=== PATIENT | female | born 1995 | race Caucasian/White ===

== ENCOUNTER 2020-09-21 15:23 | Inpatient (IN) ==
[2020-09-21] MEDS ORDERED: OXYTOCIN 30 UNITS/500 ML BAG IV PRN ×2 (18:05→18:06)
--- NOTE | 2020-09-21 18:16 | History & Physical Report ---
Date of Service September 21, 2020 Assessment & Plan (1) Irregular uterine contractions: (2) Labor, prolonged latent phase: 35-year-old G1, P0 at 39 weeks and 3 days of gestation with irregular uterine contractions, prolonged latent phase. Vital signs stable afebrile. heart rate reassuring GBS negative Discussed expectant management versus augmentation with Pitocin and AROM and she decided to stay and have augmentation and delivery of today. All questions were answered. History of Present Illness Primary Care Provider: Jose De Jesus Whalen MD Patient is a 25-year-old G1, P0 at 39 weeks and 3 days of gestation who has been feeling irregular contractions since this morning. She was in the office last Monday on and her cervix was 4-5 cm 90% effaced and -2 station. She lives 1 hour away and was worried about going into labor at home and delivering on the way. She was at work today which is 15 minutes from hospital and wanted to come in to be checked. Contractions are not very painful but they have been coming all day. No vaginal bleeding no leakage of fluid. Good movements. Her is uncomplicated except class II obesity. GBS negative. Her cervix was about the same at 430 this afternoon and her contractions were irregular. She walked around for about an hour and a half and came back and she thinks contractions are stronger. Her repeat exam is about the same but her cervix is effaced and head is nice and low with a tight bag. Discussed with the patient and her partner about prolonged latent phase. Discussed options of either expectant management or augmentation with Pitocin and AROM and delivery of infant. Patient desires to stay and start augmentation with Pitocin and delivery. All questions were answered. Home Medications Medication Instructions Recorded Confirmed Type aspirin 81 mg PO DAILY 09/21/20 09/21/20 History prenat.vits,guillermina,rpt-scok-bugig 1 tab PO HS 09/21/20 09/21/20 History [ Vitamin] Patient History Medical History No known health problems Surgical History No history of previous surgery Social History Smoking Status: Never smoker Hx Alcohol Use: No Hx Substance Use: No Preferred Language: Samoan Communication Ability: Effective Salesperson Meats Required: No Beliefs That Will Affect Care: None marital status: Current Living Situation: Spouse Other Information That Helps Us Care for You: No Feels Safe at Home: Yes Safety Concerns: 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 Review of Systems All systems reviewed & are unremarkable except as noted in HPI & below Physical Exam Constitutional: WD/WN, vitals as above well developed NAD Genitourinary: normal external appearance Manual OB Exam: + cervical dilation 5 cm, + cervical effacement 80% and + station -2 OB Exam Monitor Tracing: + external uterine monitor used and + category I Results & Data ([facility]) Vital Signs (Past 12 Hours) Vital Signs Temp Pulse Resp BP 09/21/20 16:00 20 09/21/20 15:57 18 09/21/20 15:33 37.1 C 77 20 130/77
[2020-09-21 18:28] LABS: Hematocrit (blood only) 35.2 % (37-47); Hemoglobin 12.3 g/dL (12.0-16.0); Mean Corpuscular Hemoglobin 30.3 pg (25-34); Mean Corpuscular Hgb Conc 34.9 g/dL (32-36); Mean Corpuscular Volume 86.7 fL (80-100); Mean Platelet Volume 10.5 fL (7.4-10.4); Platelet Count 324 K/uL (130-400); RDW Coefficient of Variation 13.6 % (11.5-14.5); RDW Standard Deviation 42.7 fL (36.4-46.3); Red Blood Count 4.06 M/uL (4.2-5.4); White Blood Count 15.72 K/uL (4.8-10.8)
[2020-09-21] MEDS: LACTATED RINGER'S 1,000 ML IV PRN ×2 (18:37→22:57)
--- NOTE | 2020-09-21 21:18 | Obstetrical Progress Note ---
Date of Service September 21, 2020 Assessment & Plan Admission and Anticipated Discharge Date Admission Date: September 21, 2020 Subjective Patient is reevaluated Oxytocin was started, she feel more contractions, but not very painful yet VE; 6/ 80%/ -1, bulging bag, AROM'ed, light meconium FHR categ I [place]: ctxs q 2-6 min Continue to monitor closely Results & Data ([facility]) Vital Signs (Past 12 Hours) Vital Signs Temp Pulse Resp BP 09/21/20 21:14 75 132/77 09/21/20 20:14 77 137/89 09/21/20 18:59 36.9 C 75 16 129/80 09/21/20 18:30 20 09/21/20 18:00 20 09/21/20 16:00 20 09/21/20 15:57 18 09/21/20 15:33 37.1 C 77 20 130/77
[2020-09-21] MEDS ORDERED: ePHEDrine sulfate 50 MG/ML AMP ONE (22:30)
[2020-09-21] MEDS ORDERED: BUPIVACAINE 0.25% 30 ML VIAL ONE (22:30)
[2020-09-21] MEDS ORDERED: fentaNYL citrate 100 MCG/2 ML VIAL ONE (22:30)
[2020-09-21] MEDS ORDERED: SODIUM CHLORIDE 0.9% INJ 10 ML VIAL ONE (22:30)
[2020-09-21] MEDS ORDERED: fentaNYL 2MCG/ML ROPIVACAINE 1.25MG/ML 100 ML BAG EPI ONE (22:31)
--- NOTE | 2020-09-21 22:56 | Obstetrical Progress Note ---
Date of Service September 21, 2020 Assessment & Plan Admission and Anticipated Discharge Date Admission Date: September 21, 2020 Subjective Patient has been painful since AROM, Desires epidural Has pressure VE; 9/ 90%/0 FHR categ I Continue to monitor Epidural for pain Results & Data ([facility] [place]) Vital Signs (Past 12 Hours) Vital Signs Temp Pulse Resp BP Pulse Ox 09/21/20 22:34 95 H 92 09/21/20 22:14 98 H 173/82 H 09/21/20 21:14 36.8 C 75 16 132/77 09/21/20 20:14 77 137/89 09/21/20 18:59 36.9 C 75 16 129/80 09/21/20 18:30 20 09/21/20 18:00 20 09/21/20 16:00 20 09/21/20 15:57 18 09/21/20 15:33 37.1 C 77 20 130/77
--- NOTE | 2020-09-21 23:01 | Anesthesiology Consultation ---
Date of Service September 21, 2020 Assessment & Plan (1) Encounter for pre-operative examination: Chart Review Chart Review: Patient NOT seen in Pre Admission Testing and Acceptable Risk for Labor Epidural Consults Requested none ASA ASA2 Proposed Anesthesia Anesthesia Type: Labor Epidural Risk / Benefits Reviewed With: PT / POA / Parent / Guardian, Accepts Plan and Informed Consent Obtained History Height/Weight Height: 5 ft 7 in Weight: 108.862 kg Allergies Allergy/AdvReac Type Severity Reaction Status Date / Time No Known Allergies Allergy Unverified 09/21/20 18:17 Medications Home Medications Medication Instructions Recorded Confirmed Last Taken aspirin 81 mg PO DAILY 09/21/20 09/21/20 09/20/20 21:30 prenat.vits,guillermina,eky-gxyl-humdz 1 tab PO HS 09/21/20 09/21/20 09/20/20 21:30 [ Vitamin] Active Medications Generic Name Dose Route Start Last Admin Trade Name Freq PRN Reason Stop Dose Admin Lactated Ringer's 1,000 mls @ 150 mls/hr 09/21/20 18:05 09/21/20 22:57 Lr IV 09/23/20 18:04 150 mls/hr .[id number] PRN Administration L&D Protocol Protocol Oxytocin 30 units in 500 mls @ 6 mls/hr 09/21/20 18:06 09/21/20 21:00 Pitocin IV 09/23/20 18:05 0.36 units/hr .Q24H PRN 6 mls/hr Labor Induction/Augmentation Titration Protocol 0.36 UNITS/HR NPO Date Last Intake of Fluids: 09/21/20 Time Last Intake of Fluids: 23:37 Date Last Intake of Solids: 09/21/20 Time Last Intake of Solids: 08:00 Past Medical History Medical History No known health problems Exercise / Class Metabolic Activity III < 4 Walking/Shop/Light housework Past Surgical History Surgical History No history of previous surgery Past Anesthesia History No Hx of Anesthesia Complications History of PONV No Hx of PONV Social History Smoking Status: Never smoker Hx Alcohol Use: No Hx Substance Use: No substance use type: does not use Review of Systems Patient denies history of abnormal bleeding or bleeding disorder. Patient denies active use of anticoagulants other than low dose aspirin. Patient denies numbness, tingling or weakness in lower extremities. Negative for chest pain or shortness of breath. Physical Exam Vital Signs Last Vital Signs Temp 36.8 C 09/21/20 21:14 Pulse 81 09/21/20 23:34 Resp 16 09/21/20 21:14 BP 126/64 09/21/20 23:33 Pulse Ox 94 09/21/20 23:34 Constitutional not obese (gravid uterus) ENMT Thyromental Distance: > or= 3.5 Finger Breadths Mallampati Class: II Neck normal visual inspection; neck extension not limited Respiratory normal respiratory effort, lungs clear to auscultation Cardiovascular Rate/Rhythm: regular rate and regular rhythm Neurologic moves all extremities Motor/Sensory: no sensory deficit Psychiatric Orientation: alert and oriented x 3 Testing Laboratory Results 09/21/20 18:20
--- NOTE | 2020-09-21 23:48 | Anesthesia Procedure Note ---
Date of Service September 21, 2020 Anesthesia Post Epidural Note Vital Signs Vital Signs: Temp Pulse Resp BP Pulse Ox 36.8 C 74 16 147/80 H 98 09/21/20 21:14 09/21/20 23:41 09/21/20 21:14 09/21/20 23:36 09/21/20 23:41 Notes Mental Status: alert / awake / arousable and participated in evaluation Nausea / Vomiting: adequately controlled Pain: adequately controlled Airway Patency, RR, SpO2: stable & adequate BP & HR: stable & adequate Hydration State: stable & adequate Neuraxial Anesthesia: was administered and see Notes below Anesthetic Complications: no major complications apparent Epidural: Removed without complications and With tip intact Notes: Original epidural pulled and immediately replaced. See anesthetic record.
[2020-09-21] MEDS ORDERED: ePHEDrine sulfate 50 MG/ML AMP IV PRN (23:54)
[2020-09-21] MEDS ORDERED: NALOXONE HCL 0.4 MG/1 ML VIAL/CARP IV PRN (23:54)
[2020-09-21] MEDS ORDERED: fentaNYL 2MCG/ML ROPIVACAINE 1.25MG/ML 100 ML BAG EPI PRN (23:54)
[2020-09-21] MEDS ORDERED: NALOXONE HCL 1 MG in SODIUM CHLORIDE 0.9% 1000ML 1,000 ML IV PRN (23:54)
[2020-09-21] MEDS ORDERED: ONDANSETRON INJ 2 MG/ML 2 ML VIAL IV PRN (23:54)
[2020-09-21] MEDS ORDERED: diphenhydrAMINE 50 MG/ML VIAL IV PRN (23:54)
[2020-09-22] MEDS ORDERED: bisacodyL 10 MG SUPP PR PRN (03:09)
[2020-09-22] MEDS ORDERED: OXYTOCIN 30 UNITS/500 ML BAG IV PRN (03:09)
[2020-09-22] MEDS ORDERED: oxyCODONE/ACETAMINOPHEN 5mg/325mg TAB PO PRN (03:09)
[2020-09-22] MEDS ORDERED: SUPERCREAM 0.870% 15 GM JAR EXT PRN (03:09)
[2020-09-22] MEDS ORDERED: MEASLES, MUMPS & RUBELLA VIRUS VIAL SQ ONE (03:09)
[2020-09-22] MEDS ORDERED: HYDROCORTISONE ACETATE 25 MG SUPP PR PRN (03:09)
[2020-09-22] MEDS ORDERED: BENZOCAINE 20% AER SPR 82.5 GM CAN EXT PRN (03:09)
[2020-09-22] MEDS ORDERED: ACETAMINOPHEN 325 MG TAB PO PRN (03:09)
[2020-09-22] MEDS ORDERED: DIPHTHERIA/TETANUS/PERTUSSIS 0.5 ML SYR/VIAL IM ONE (03:09)
--- NOTE | 2020-09-22 06:38 | Delivery Summary ---
DATE OF OPERATION: 09/22/2020 TIME OF DELIVERY: 2:17 a.m. DETAILS OF DELIVERY: The patient was found to be fully dilated and desired to push. She pushed for about an hour and delivered the head without difficulty. Shoulders were delivered with minimal traction. Baby was handed off to the mother where mouth and nose were suctioned. Cord was clamped x2 and cut and cord blood was obtained. Vagina and perineum were checked for lacerations. There was a second-degree perineal laceration at the posterior fourchette. Rectal exam was done and excellent sphincter tone was noted. Gloves were changed and this was repaired with 2-0 Vicryl in a running locked fashion bringing the vaginal mucosa together, perineal body muscles together and skin in a subcuticular fashion. Then placenta was found to be in the vagina, delivered spontaneous as intact and complete. Uterus was explored and found to be empty. Lower segment was cleared of all clots and debris. The fundus was firm. IV oxytocin was started and then laceration was checked to be again oozing in the middle where it was repaired. Multiple [id number]-[id number] stitches were placed and it was still oozing. Then vaginal retractor was used to retract the bladder and then more sutures were placed and it was hemostatic. The edges were oozing. Then Estrada powder was covered over the repair and it was packed with a vaginal packing and Schuster catheter was inserted to drain the bladder. The baby was a viable female infant, Apgars 8/9, weight is 3536gr. No complications happened and I was present during whole procedure. Vaginal packing and schuster were removed 12 hours after. I attest to the content of the Intraoperative Record and any orders documented therein. Any exceptions are noted below. MTDD
--- NOTE | 2020-09-22 07:14 | Anesthesia Procedure Note ---
Date of Service September 22, 2020 Anesthesia Post Epidural Note Vital Signs Vital Signs: Temp Pulse Resp BP Pulse Ox 98.8 F 84 16 114/76 97 09/22/20 06:20 09/22/20 06:20 09/22/20 06:20 09/22/20 06:20 09/22/20 06:20 Pain Intensity Episiotomy/Laceration: Pain Intensity: 3 Notes Mental Status: alert / awake / arousable and participated in evaluation Nausea / Vomiting: adequately controlled Pain: adequately controlled Airway Patency, RR, SpO2: stable & adequate BP & HR: stable & adequate Hydration State: stable & adequate Neuraxial Anesthesia: was administered and sensory block is resolving Anesthetic Complications: no major complications apparent and Pt Satisfied with anesthetic care Epidural: Removed without complications and With tip intact
[2020-09-22] MEDS: PRENATAL VITAMIN 1 TAB PO SCH (07:56)
[2020-09-22] MEDS: IBUPROFEN 600 MG TAB PO PRN ×3 (07:56→17:03)
[2020-09-22] MEDS: FERROUS SULFATE 325 MG TAB PO SCH (07:56)
[2020-09-22] MEDS: DOCUSATE SODIUM 100 MG CAP PO SCH ×2 (07:56→20:12)
[2020-09-23] MEDS: IBUPROFEN 600 MG TAB PO PRN ×2 (04:13→08:32)
[2020-09-23 06:40] LABS: Hemoglobin 9.5 g/dL (12.0-16.0); Mean Corpuscular Hemoglobin 29.7 pg (25-34); Mean Corpuscular Hgb Conc 33.9 g/dL (32-36); Mean Corpuscular Volume 87.5 fL (80-100); Mean Platelet Volume 10.5 fL (7.4-10.4); Platelet Count 242 K/uL (130-400); RDW Coefficient of Variation 13.8 % (11.5-14.5); RDW Standard Deviation 43.7 fL (36.4-46.3); White Blood Count 14.75 K/uL (4.8-10.8)
[2020-09-23] MEDS: PRENATAL VITAMIN 1 TAB PO SCH (08:31)
[2020-09-23] MEDS: FERROUS SULFATE 325 MG TAB PO SCH (08:31)
[2020-09-23] MEDS: DOCUSATE SODIUM 100 MG CAP PO SCH (08:32)
--- NOTE | 2020-09-23 08:56 | Obstetrical Progress Note ---
Date of Service September 23, 2020 Assessment & Plan Admission and Anticipated Discharge Date Admission Date: September 21, 2020 Subjective PPD#1 doing well passing gas tolerating diet out of bed Physical Exam Constitutional: well developed and comfortable abdomen soft and non-tender fundus firm no edema neg Zulema's for d/c today Results & Data ([facility]) Vital Signs (Past 12 Hours) Vital Signs Temp Pulse Resp BP Pulse Ox 09/23/20 07:30 37 C 69 16 130/79 98 09/23/20 00:00 37.0 C 70 18 126/80 Laboratory Results Laboratory Results - last 72 hr 09/21/20 09/21/20 09/21/20 18:20 18:36 18:36 WBC 15.72 H RBC 4.06 L Hgb 12.3 Hct 35.2 L MCV 86.7 MCH 30.3 MCHC 34.9 RDW Std Deviation 42.7 RDW Coeff of Shahzad 13.6 Plt Count 324 MPV 10.5 H COVID-19 Eval [facility] SARS-CoV-2, RNA, NAAT NEGATIVE 09/23/20 06:13 WBC 14.75 H RBC 3.20 L Hgb 9.5 L Hct 28.0 L MCV 87.5 MCH 29.7 MCHC 33.9 RDW Std Deviation 43.7 RDW Coeff of Shahzad 13.8 Plt Count 242 MPV 10.5 H COVID-19 Eval Order SARS-CoV-2, RNA, NAAT
[2020-09-23] MEDS ORDERED: bisacodyL 5 MG TABEC PO SCH (20:00)
== END 2020-09-23 11:30 | disposition home or self-care (01) | DRG 807 ==
LOC: 4S1 15:23 → OPB 15:23 → 4S1 18:05 → 4S2 09-22 06:31